=== PATIENT | female | born 2000 | race Caucasian/White ===

== ENCOUNTER 2020-08-06 05:45 | Day surgery (SDC) | payer OTHER ==
[~2020-08-06] VITALS: Ht 144.8 cm; Wt 70.0 kg
--- NOTE | ~2020-08-06 | OP ---
PATIENT NAME: SALAZAR ARCEO MEDICAL RECORD: [id number] :00 LOCATION:[facility] ADMISSION DATE: SURGEON: GRICELDA DOSHI MD DATE OF OPERATION: 08/06/2020 PREOPERATIVE DIAGNOSIS: Gastroesophageal reflux disease. POSTOPERATIVE DIAGNOSIS: Gastroesophageal reflux disease. PROCEDURE: EGD with catheter placement. SURGEON: Gricelda Doshi MD REPORT OF PROCEDURE: A manometry catheter was advanced through the patient's left naris. An Olympus endoscope was advanced through the mouth and esophagus. We were able to pass through the esophagus into the GE junction into the stomach and could see that the manometry catheter was advanced through the GE junction and was resting in the body of the stomach. There were no signs of any inflammatory changes in the stomach and no masses or lesions. We then pulled the scope back slowly, making sure to leave the indwelling catheter in place. COMPLICATIONS: None. CONDITION: Stable. ANESTHESIA: TIVA. BLOOD LOSS: None. TRANSINT:[id number] Voice Confirmation ID: [id number] DOCUMENT ID: [id number] GRICELDA DOSHI MD CC: [id number] DICTATION DATE: 08/06/20812 ELECTRICITY TRADER: 08/06/20831 [facility] [address] [place] [address]
[2020-08-06 06:03] LABS: BASOPHILS 0.1 % (0-2); EOSINOPHILS 2.1 % (0-7); HEMATOCRIT 41.7 % (36.0-48.0); HEMOGLOBIN 14.4 g/dL (12-16); IMMATURE GRANULOCYTES 0.4 % (0-5); LYMPHOCYTE ABS# 3.25 10x3/uL (1.18-3.74); LYMPHOCYTES 42.6 % (15-50); MCH 31.9 pg (26.0-34.0); MCHC 34.5 g/dL (31.0-37.0); MCV 92.3 fL (80.0-100.0); MEAN PLATELET VOLUME 9.4 fL (7.4-10.4); MONOCYTES 8.3 % (2-11); NEUTROPHIL ABS# 3.55 10x3/uL (1.56-6.13); NEUTROPHILS 46.5 % (40-80); PLATELET COUNT 322 10x3/uL (130-400); RBC 4.52 10x6/uL (4.00-5.40); RDW 12.1 % (11.5-14.5); WBC 7.6 10x3/uL (4.8-10.8)
[2020-08-06] MEDS ORDERED: BUSPAR 15 MG TA15 MG PO (06:20)
[2020-08-06] MEDS ORDERED: PROTONIX40 MG PO (06:20)
[2020-08-06 06:21] LABS: HCG SERUM NEGATIVE (NEGATIVE)
[2020-08-06] MEDS ORDERED: BENTYL 20 MG TA20 MG PO (06:21)
[2020-08-06] MEDS ORDERED: CARAFATE1 G PO (06:21)
[2020-08-06] MEDS ORDERED: QUESTRAN LIG1 PACKET PO (06:21)
[2020-08-06 06:29] LABS: CALC OSMOLALITY 274 mosm/kg (275-300); CALCIUM 8.8 mg/dL (8.5-10.1); CARBON DIOXIDE 24.6 mmol/L (21.0-32.0); CHLORIDE - SERUM 103 mmol/L (98-107); CREATININE - SERUM 0.9 mg/dL (0.6-1.3); GLUCOSE 98 mg/dL (74-106); POTASSIUM - SERUM 3.7 mmol/L (3.5-5.1); SODIUM 138 mmol/L (136-145); UREA NITROGEN 9 mg/dL (7-18); eGFR NON AFRICAN AMERICAN 85 mL/min (90-120)
[2020-08-06 06:52] VITALS: BP 129/72; Ht 144.8 cm; Wt 70.0 kg
--- NOTE | 2020-08-06 10:58 | NUR ---
IV D/C'D WITH CANNULA INTACT, PRESSURE HELD AND DRSG PLACED. DISCHARGE INSTRUCTIONS GIVEN TO BOTH PT AND MOTHER AND THEY VERBALIZED AN UNDERSTANDING
== END 2020-08-06 09:38 | disposition home or self-care (01) ==
LOC: D.OPS 05:45
PROVIDERS: Anesthesiology; ATTEND Surgery
DX: K21.9 Gastro-esophageal reflux disease without esophagitis (principal); F17.200 Nicotine dependence, unspecified, uncomplicated

== ENCOUNTER 2020-08-27 07:13 | Day surgery (SDC) | payer OTHER ==
[~2020-08-27] VITALS: Ht 144.8 cm; Wt 70.8 kg
--- NOTE | ~2020-08-27 | OP ---
PATIENT NAME: SALAZAR ARCEO MEDICAL RECORD: [id number] :00 LOCATION:[id number] ADMISSION DATE: SURGEON: JASON DOSHI MD DATE OF OPERATION: 08/27/2020 PREOPERATIVE DIAGNOSES: 1. Gastroesophageal reflux disease. 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 POSTOPERATIVE DIAGNOSES: 1. Gastroesophageal reflux disease. 2. Jackhammer esophagus. PROCEDURE: Laparoscopic Fernie fundoplication. SURGEON: Jason Doshi MD REPORT OF PROCEDURE: The patient's abdomen was prepped and draped in sterile fashion. A Veress needle was inserted in the left upper quadrant and the abdomen was insufflated. An 11-mm Visiport trocar was inserted in the midline just above the umbilicus. We could see the Veress needle and there was no sign of any injury to bowel or surrounding structures. The Veress needle was removed and in its place an 11-mm trocar was inserted in the left subcostal region. A 5-mm trocar was then placed in the epigastrium. A 5-mm trocar was placed in the left lateral abdomen and a final 5-mm trocar was placed in the right lateral subcostal region. A liver retractor was inserted and the left lobe of the liver was elevated. The patient had no evidence of a hiatal hernia. We started our dissection on the lesser omentum and took down the thin adhesions using Harmonic scalpel. We did this all the way to the right side of the right choco. We then scored the peritoneum on this choco and was able to penetrate the thoracic cavity. I was able to get around the esophagus distally and went as far anteriorly and posteriorly as possible on this right side. We then approached the greater curvature of the stomach where we took down the short gastrics on the upper third of the stomach using Harmonic scalpel. We continued this dissection on the fundus of the stomach where it was very closely adherent to the upper edge of the spleen. Care was taken to try and take this off without causing any bleeding and there was a scant amount of bleeding, which was encountered, but this resolved quickly. The fundus was taken down all the way to the left side of the right choco were again we scored the peritoneum and entered the thoracic cavity. We eventually were able to dissect out the complete distal esophagus and had a 360-degree view. The distal esophagus rested easily in the abdominal cavity without any tension. We then reapproximated the esophageal hiatus with interrupted 0 Polydeks times 2. A 360-degree posterior wrap was performed with the fundus of the stomach around the distal esophagus using interrupted 0 Polydeks times 3 with the top and the bottom suture incorporating a bite of the esophagus. Everything appeared to rest in good position and there was no sign of any active bleeding at the conclusion of the case. I went ahead and irrigated out the abdomen and then instilled some Irma in the area of the dissection around the spleen. At this point, the 11-mm trocar site fascias were closed with interrupted 0 Vicryl using a Joseph-Anne-Marie suture passer device. The ports and insufflation were then removed. A total of 10 mL of 0.25% Marcaine with epinephrine was infused into the surrounding tissues and the skin incisions were closed with subcutaneous 5-0 Monocryl. OPERATIVE REPORT [id number] SALAZAR ARCEO COMPLICATIONS: None. CONDITION: Stable. ANESTHESIA: General endotracheal and local. BLOOD LOSS: 30 mL. TRANSINT:[id number] Voice Confirmation ID: [id number] DOCUMENT ID: [id number] JASON DOSHI MD CC: ASA BLACKMAN MD [id number] DICTATION DATE: 08/27/20 1140 LANDSCAPE ENGINEER: 08/27/20 1242 [facility] [address] [place] [address]
[~2020-08-27 07:13] MED LIST: BENTYL 20 MG TA20 MG PO; BUSPAR 15 MG TA15 MG PO; CARAFATE1 G PO; NEXPLANON; PROTONIX40 MG PO; QUESTRAN LIG1 PACKET PO
[2020-08-27 07:35] LABS: BASOPHILS 0.2 % (0-2); EOSINOPHILS 2.2 % (0-7); HEMOGLOBIN 13.9 g/dL (12-16); IMMATURE GRANULOCYTES 0.5 % (0-5); LYMPHOCYTE ABS# 3.07 10x3/uL (1.18-3.74); LYMPHOCYTES 36.3 % (15-50); MCH 32.3 pg (26.0-34.0); MCHC 34.8 g/dL (31.0-37.0); MEAN PLATELET VOLUME 9.8 fL (7.4-10.4); MONOCYTES 9.8 % (2-11); PLATELET COUNT 352 10x3/uL (130-400); RDW 12.1 % (11.5-14.5); WBC 8.5 10x3/uL (4.8-10.8)
[2020-08-27 07:44] LABS: CALC OSMOLALITY 274 mosm/kg (275-300); CARBON DIOXIDE 23.3 mmol/L (21.0-32.0); CHLORIDE - SERUM 104 mmol/L (98-107); CREATININE - SERUM 0.7 mg/dL (0.6-1.3); GLUCOSE 98 mg/dL (74-106); POTASSIUM - SERUM 3.8 mmol/L (3.5-5.1); SODIUM 138 mmol/L (136-145); UREA NITROGEN 11 mg/dL (7-18); eGFR NON AFRICAN AMERICAN > 90 mL/min (90-120)
[2020-08-27 07:45] LABS: HCG SERUM NEGATIVE (NEGATIVE)
[2020-08-27 08:46] VITALS: BP 117/76; BMI 33.8
--- NOTE | 2020-08-27 12:00 | NUR ---
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 CL IN REACH BED IN LOWEST POSITION, CONTINUE WITH PLAN OF CARE
[2020-08-27 12:20] VITALS: BP 124/76
[2020-08-27 13:10] VITALS: BP 122/69; BMI 33.8
[2020-08-27 15:44] VITALS: BP 94/51
--- NOTE | 2020-08-27 16:07 | NUR ---
PATIENT REQUESTED TO HAVE SCD TAKEN OFF, EDUCATED PARENTS AND PATIENT IMPORTANCE OF SCD OT PREVENT BLOOD CLOTS, BOTH PARENTS AND PATIENT VERBALIZED UNDERSTANDING BUT PATIENT STILL WANTED SCD REMOVED AND AGREED TO HAVE PLACED ON WHILE ASLEEP TONIGHT. NO OTHER NEEDS AT THIS TIME. CONTINUE WITH PLAN OF CARE
--- NOTE | 2020-08-27 16:17 | NUR ---
PATIENT UP SEVERAL TIMES TO RESTROOM ALREADY, STATES INCISION SITES SORE BUT NOT UNBEARABLE, NO NEEDS VOICED AT THIS TIME. CONTINUE WITH PLAN OF CARE
--- NOTE | 2020-08-27 18:05 | NUR ---
PATIENT MOM CAME TO NURSING STATION STATED PATIENT HAS ONE DRESSING THAT IS LEAKING AND CONCERNED PATIENT, CHANGED BANDAID AND REINFORCED DRESSING WITH STERI STRIPS AFTER CLEANING SITE. NO OTHER NEEDS AT THIS TIME. CONTINUE WITH PLAN OF CARE
[2020-08-27 20:00] VITALS: BP 121/62
[2020-08-28] VITALS: BP 94/57
[2020-08-28 04:00] VITALS: BP 110/56
--- NOTE | 2020-08-28 04:22 | NUR ---
ASSESSED AT THE BEGINNING OF THE SHIFT. PT IS ALERT AND ORIENTED, ABLE TO VERBALIZE NEEDS. SHE HAS LAP INCISIONS X'S 5 AND IS USING A TRAIN ELECTRONIC TECHNICIAN FOR PAIN CONTROL. HER IV FLUIDS ARE TO HER RIGHT HAND AND SHE IS ON ROOM AIR. SHE HAS ALSO BEEN GOOD ABOUT CALLING FOR ASSSIT TO THE BATHROOM EVEN THOUGH SHE IS NOT SHAKEY.
[2020-08-28 06:55] LABS: BASOPHILS 0.1 % (0-2); EOSINOPHILS 0 % (0-7); HEMATOCRIT 37.2 % (36.0-48.0); HEMOGLOBIN 12.6 g/dL (12-16); IMMATURE GRANULOCYTES 0.2 % (0-5); LYMPHOCYTE ABS# 1.72 10x3/uL (1.18-3.74); LYMPHOCYTES 10.5 % (15-50); MCH 32.1 pg (26.0-34.0); MCHC 33.9 g/dL (31.0-37.0); MCV 94.7 fL (80.0-100.0); MEAN PLATELET VOLUME 10.6 fL (7.4-10.4); MONOCYTES 9.4 % (2-11); NEUTROPHIL ABS# 13.08 10x3/uL (1.56-6.13); NEUTROPHILS 79.8 % (40-80); PLATELET COUNT 381 10x3/uL (130-400); RBC 3.93 10x6/uL (4.00-5.40); RDW 12.3 % (11.5-14.5)
[2020-08-28 07:14] LABS: WBC 16.4 10x3/uL (4.8-10.8)
[2020-08-28 07:50] LABS: CALC OSMOLALITY 278 mosm/kg (275-300); CALCIUM 8.9 mg/dL (8.5-10.1); CARBON DIOXIDE 24.5 mmol/L (21.0-32.0); CHLORIDE - SERUM 106 mmol/L (98-107); CREATININE - SERUM 0.7 mg/dL (0.6-1.3); GLUCOSE 101 mg/dL (74-106); POTASSIUM - SERUM 4.2 mmol/L (3.5-5.1); SODIUM 141 mmol/L (136-145); eGFR NON AFRICAN AMERICAN > 90 mL/min (90-120)
[2020-08-28 07:52] LABS: UREA NITROGEN 8 mg/dL (7-18)
--- NOTE | 2020-08-28 08:00 | NUR ---
ASSESSMENT PER FLOW SHEET. PATIENT IS WITHOUT DISTRESS. DENIES NEEDS AT PRESENT. MONITOR FOR NEEDS.
[2020-08-28 08:34] VITALS: BP 111/69
[2020-08-28 11:57] VITALS: Ht 144.8 cm; Wt 70.8 kg
[2020-08-28 13:06] VITALS: BP 143/70
[2020-08-28] MEDS ORDERED: HYDROCODON-ACE1 EA10 PO (13:21)
[2020-08-28] MEDS ORDERED: REGLAN10 MG PO (13:21)
--- NOTE | 2020-08-28 14:18 | NUR ---
DC EDUCATIO PROVIDED BOTH WRITTEN AND VERBAL TO PATIENT AND MOM AT BEDSIDE. PATIENT DENIES FURTHER QUESTIONS OR NEEDS. IV REMOVED WITH TIP INTACT. PATIENT DC HOME WITH MOM WITH ALL BELONGINGS.
== END 2020-08-28 14:21 | disposition home or self-care (01) ==
LOC: D.OPS 07:13 → D.MS 07:13 → D.OPS 09:45 → D.MS 11:57 → D.OPS 08-28 14:21
PROVIDERS: Anesthesiology; ATTEND Surgery
DX: K21.9 Gastro-esophageal reflux disease without esophagitis (principal); F17.200 Nicotine dependence, unspecified, uncomplicated; K22.4 Dyskinesia of esophagus